=== PATIENT | male | born 1970 | race Caucasian/White ===

== ENCOUNTER 2025-08-06 09:24 | Emergency (ER) | payer BC, SELFPAY ==
[2025-08-06 09:26] VITALS: BP 138/87; PULSE 85; RESP 18; TEMP 37; O2SAT 97
--- NOTE | 2025-08-06 09:55 | ED.GENADULT ---
HPI - General Adult General Chief complaint: Post Op Complication Stated complaint: post op complication, bleeding Time Seen by Provider: 08/06/25 09:29 History of Present Illness HPI narrative: Patient is a 54 year white male who is type 2 diabetic and on Xarelto for TIA, presents after he had umbilical hernia surgery about 10 days ago in [facility], they are driving on the way to [place]. He scrubbed is abdomen little more aggressively today and it caused some bleeding around the surgical site. They stop for evaluation. He is taking Xarelto preventatively for TIA as mention. Patient denies pain in his abdomen he is recovering from his surgery. He Related Data Home Medications ?Medication ?Instructions ?Recorded ?Confirmed atorvastatin 40 mg tablet 40 mg PO DAILY 08/06/25 08/06/25 hydrochlorothiazide 25 mg tablet 25 mg PO DAILY 08/06/25 08/06/25 lisinopril 40 mg tablet 40 mg PO DAILY 08/06/25 08/06/25 rivaroxaban 20 mg tablet (Xarelto) 25 mg PO DAILY 08/06/25 08/06/25 Allergies Allergy/AdvReac Type Severity Reaction Status Date / Time contrast Allergy Severe Uncoded 08/06/25 09:33 Review of Systems Status of ROS: Reports: 6 or more systems reviewed and unremarkable except as noted in History and below Exam Narrative: Exam Narrative: Objective: Vital signs are within normal limits Alert or x3 Abdomen is shows some bruising around the umbilicus where his umbilical hernia repaired, the patient did had this open to air and the family had Steri-Strips at this morning, these were removed The wound is intact there is no obvious bleeding along the surgical site line I was observing it for period of time and there appeared to be no oozing or leaking, no evidence evidence of cellulitis. There is some firmness around the umbilicus below consistent with mild hematoma, this seems like it was more postoperative. Const: Vital Signs, click to edit/add: Vital Signs - 24 hr 08/06/25 09:26 Temperature 98.6 F Pulse Rate [Right Pulse Oximeter] 85 Respiratory Rate 18 Blood Pressure [Ri ght Upper Arm] 138/87 Pulse Oximetry 97 Oxygen Delivery Me thod Room Air Course Vital Signs Vital signs: Initial Vital Signs Temperature 98.6 F 08/06/25 09:26 Temperature Source Temporal Artery Scan 08/06/25 09:26 Pulse Rate 85 08/06/25 09:26 Pulse Rhythm Regular 08/06/25 09:26 Pulse Strength 3+ Normal 08/06/25 09:26 Respiratory Rate 18 08/06/25 09:26 Blood Pressure 138/87 08/06/25 09:26 Blood Pressure Mean 104 08/06/25 09:26 Blood Pressure Position Sitting 08/06/25 09:26 Pulse Oximetry 97 08/06/25 09:26 Oxygen Delivery Method Room Air 08/06/25 09:26 Vital Signs Temperature 98.6 F 08/06/25 09:26 Pulse Rate 85 08/06/25 09:26 Respiratory Rate 18 08/06/25 09:26 Blood Pressure 138/87 08/06/25 09:26 Pulse Oximetry 97 08/06/25 09:26 Oxygen Delivery Method Room Air 08/06/25 09:26 Temperature 98.6 F 08/06/25 09:26 Pulse Rate 85 08/06/25 09:26 Respiratory Rate 18 08/06/25 09:26 Blood Pressure 138/87 08/06/25 09:26 Pulse Oximetry 97 08/06/25 09:26 Oxygen Delivery Method Room Air 08/06/25 09:26 Medical Decision Making MDM Narrative Medical decision making narrative: 54-year-old male with type 2 diabetes an on Xarelto for TIA presents with bleeding along his surgical site. At this time I think will simply clean it covered with Telfa and ABD and they can proceed on their journey to [place]. Recommend he not drive. Recommend his drive. Recommend he hold his Xarelto for a day given it is just a preventative dose. Keep the wound covered if there is any leaking today and then may leave it open to air as soon as it is not bleeding. Although now peers there is no active bleeding or obvious bleeding. Discharge Plan Discharge Clinical Impression: Encounter for post surgical wound check Patient Disposition: Home w/ Parent or Adult Condition: Stable Additional Instructions: Keep covered today, may take off the covering as soon as it is not bleeding at all, would recommend holding your Xarelto dose today and then restarting tomorrow. Light activity. Consult with your surgeon as needed. Activity Level: Light activity Discharge Diet: Diabetic Prescriptions: No Action lisinopril 40 mg tablet 40 mg PO DAILY atorvastatin 40 mg tablet 40 mg PO DAILY hydrochlorothiazide 25 mg tablet 25 mg PO DAILY Xarelto 20 mg tablet 25 mg PO DAILY Rx Instructions: must administer with evening meal Stand Alone Forms: [employer] Info Instructions
--- OUTSIDE RECORDS SUMMARY | 2025-08-06 10:11 | XMS_ITS | Encounter Summary ---
Author Organization [facility] Address [address] [place] [id number] Phone Care Team Providers Care Legal Practice Manager Name Role Phone Lilian Torres APRN, CLARISSA Primary Care Prov ider Reason for Visit * Reason Onset Date Comments Study/research 06/22/2025 Precidentd Study - 2 year visit Encounter Details Date Type Department Care Team (Late st Contact Info) Description 06/22/2025 Telephone [facility] [address] [place] [address] Shannon Beavers Study/research (Precidentd Study - 2 year visit) Social History Tobacco Use Types Packs/Day Years Used Date Smoking Tobacco: Every Day Cigarettes 1 15 Cigars Smokeless Tobacco: Former Chew Quit: 05/27/2025 Alcohol Use Standard Drinks/Week Comments Yes 0 (1 standard drink = 0.6 oz pure alcohol) 12 beers per week, recently 24 pack a day [facility] Utilities Answer Date Recorded In the past 12 months has [employer], gas, oil, or water [employer] threatened to shut off services in your home? No 04/10/2025 Overall Financial Resource Strain (CARDIA) Answe r Date Recorded How hard is it for you to pa y for the very basics like food, housing, medical care, and heating? Not hard at all 11/19/2021 PHQ-2 Answer Date Recorded PHQ-2 Total 0 11/19/2021 Hunger Vital Sign Answer Date Recorded Within the past 12 months, y ou worried that your food would run out before you got the money to buy more. Never true 04/10/20 25 Within the past 12 months, t he food you bought just didn't last and you didn't have money to get more. Never true 04/10/2025 PRAPARE - Transportation Answer Date Re corded In the past 12 months, has l ack of transportation kept you from medical appointments or from getting medications? No 03/16 In the past 12 months, has l ack of transportation kept you from meetings, work, or from getting things needed for daily living? No 04/10/2025 Housing Stability Vital Sign Answer Nemesio e Recorded In the last 12 months, was t here a time when you were not able to pay the mortgage or rent on time? No 04/10/2025 In the past 12 months, how m any times have you moved where you were living? 0 04/10/2025 At any time in the past 12 m [facility], were you homeless or living in a long term (including now)? No 04/10/2025 EH IP Custom IPV Answer Date Recorded Do you feel UNSAFE in any of your personal relationships with your family members or any other acquaintances? 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 Gender Identity Male 12/15/2022 1:25 PM CDT Sexual Orientation Not on file documented as of this encounter Functional Status * Patient's Vision Adequate to Safely Complete Daily Activities Answer Date of Assessment Author Yes 04/10/2025 1:35 AM SANKETT Joslyn Estes RN * Patient's Memory Adequate to Safely Complete Daily Activities Answer Date of Assessment Author Yes 04/10/2025 1:35 AM Joslyn Reinoso RN documented as of this encounter Mental Status * Patient's Judgment Adequate to Safely Complete Daily Activities Answer Entry Date Author Yes 04/10/2025 1:35 AM Joslyn Reinoso RN documented in this encounter Ordered Prescriptions Prescription Sig Dispense Quantity Refills Last Filled Start Date End Date semaglutide (Ozempic, 1 MG/DOSE,) 4 mg/3 mL solution pen-injectorIndica tions:Type 2 diabetes mellitus without complication, without long-term current use of insulin (HCC),Obesity, morbid, BMI 40.0-49.9 (HCC),History of ischemic stroke,Clinical trial participant Inject 1 mg under the skin one time a week. Start on week 11. 3 mL 1 09/01/2025 5 semaglutide, 0.25 or 0.5 mg/dose, (Ozempic, 0.25 or 0.5 MG/DOSE,) 2 mg/3 mL solution pen-injectorIndica tions:Type 2 diabetes mellitus without complication, without long-term current use of insulin (HCC),Obesity, morbid, BMI 40.0-49.9 (HCC),History of ischemic stroke,Clinical trial participant Inject 0.25 mg under the skin once weekly for 4 doses, THEN increase to 0.5 mg once weekly for 6 doses. 3 mL 1 06/24/2025 1:32 PM CDT 06/23/2025 5 documented in this encounter Miscellaneous Notes * Addendum Note - Shannon Beavers - 06/23/2025 1:51 PM CDTAddended by: SHANNON BEAVERS on: 06/23/2025 01:51 PM Modules accepted: Orders * Telephone Encounter - Shannon Beavers - 06/23/2025 1:42 PM CDT Pharmacy Estimate is as follows: The current plan we have [facility], nothing new came up. There is no copay for 84 days of Trulicity or Ozempic under that plan. GLP-1 Receptors: Dulaglutide injection (brand name: Trulicity) 0.75mg/0.5mL SC qweek x 4 weeks, then increase to 1.5mg weekly. 3 months supply. Semaglutide injection (brand name: Ozempic) start at 0.25mg SC weekly x 4 weeks then increase to 0.5mg SC weekly x 4 weeks. 3 months supply. Spoke with the patient about his estimate and he wants to restart this medication. He requests Ozempic RX be sent to [facility] pharmacy. Dr Perez has OK'd restarting GLP-1 as the patient was originally randomized to this group. Cosigned by Rosa Perez MD at 06/23/2025 4:53 PM CDT Associated attestation - Rosa Perez MD - 06/23/2025 4:53 PM CDT Attestation: I agree with the findings and the plan of care as documented. Rosa Perez MD 06/23/2025 4:52 PM * Telephone Encounter - Shannon Beavers - 06/22/2025 11:07 AM CDT Spoke with the patient on Precidentd study regarding year 2 visit check in. The patient was randomized to a GLP-1 but has not been taking it due to cost. I let him know I'd be happy to do a pharmacy estimate and look into the cost, as he is on a new insurance and it may be more affordable. documented in this encounter Plan of Treatment Not on file documented as of this encounter Visit Diagnoses Diagnosis Type 2 diabetes mellitus without complication, without long-term current use of insulin (HCC)- Primary Obesity, morbid, BMI 40.0-49.9 (HCC) History of ischemic stroke Precidentd Study participant Reserved for inherently not codable concepts WITHOUT codable children documented in this encounter Care Teams Legal Practice Manager Relationship Specialty Start Date End Date Lilian Trores, TRIMMER TAILER, COLLAR SETTER [address] [facility] [address] [place] [address] PCP - General Nurse Practitioner 02/08/25 documented as of this encounter
--- OUTSIDE RECORDS SUMMARY | 2025-08-06 10:11 | XMS_ITS | Encounter Summary ---
Author Organization [facility] Address [address] [address] Phone Care Team Providers Care Spinner Cap Frame Name Role Phone Lilian Torres APRN, CNP Primary Care Prov ider Reason for Visit * Reason Comments Refill Request Encounter Details Date Type Department Care Team (Late st Contact Info) Description 07/13/2025 Refill [facility] [address] [place], [place] [address] Lisset Bejarano APRN, CONCRETE BATCHING PLANT OPERATOR [address] [place], [place] [address] Refill Request Social History Tobacco Use Types Packs/Day Years Used Date Smoking Tobacco: Every Day Cigarettes 1 15 Cigars Smokeless Tobacco: Former Chew Quit: 05/27/2025 Alcohol Use Standard Drinks/Week Comments Yes 0 (1 standard drink = 0.6 oz pure alcohol) 12 beers per week, recently 24 pack a day [facility] Utilities Answer Date Recorded In the past 12 months has [employer], gas, oil, or water [employer] threatened to shut off services in your [...] money to buy more. Never true 04/10/20 Within the past 12 months, t he [...] any time in the past 12 m [facility], were you homeless or living in a detention (including now)? No 04/10/2025 EH IP Custom IPV Answer Date Recorded Do you feel UNSAFE in any of your personal relationships with your family members or any other acquaintances? 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 Future refills to PCP 30 Tablet 07/26/2025 3:00 PM LOOP MACHINE OPERATOR 07/13/2025 documented in this encounter Miscellaneous Notes * Telephone Encounter - Li Woo RN - 07/13/2025 3:16 PM CDT Images from the original note were not included. Requested Renewals rivaroxaban (Xarelto) 20 MG tablet Sig: Take 1 Tablet by mouth one time a day. Disp: 30 Tablet Refills: 1 Start: 07/13/2025 Class: Normal Non-formulary Last ordered: 1 month ago (06/06/2025) by Lisset Bejarano APRN, CNP Last dispensed: 06/24/2025 Rx #: [id number] To be filled at: [facility] documented in this encounter Plan of Treatment Not on file documented as of this encounter Visit Diagnoses Not on filedocumented in this encounter Discontinued Medications Medication Sig Discontinue Reason Start Date End Da te rivaroxaban (Xarelto) 20 MG tablet Take 1 Tablet by mouth one time a day. Reorder 06/06/2025 07/13/2025 documented as of this encounter Care Teams Spinner Cap Frame Relationship Specialty Start Date End Date Lilian Torres APRN, CLARISSA [address] [address] PCP - General Nurse Practitioner 02/08/25 documented as of this encounter
--- OUTSIDE RECORDS SUMMARY | 2025-08-06 10:11 | XMS_ITS | Clinical Summary ---
Author Organization [facility] Address [address] [place] [address] [place] [address] Phone Care Team Providers Care Regional Sales Coordinator Name Role Phone Lilian Torres APRN, CLARISSA Primary Care Prov ider Allergies Active Allergy Reactions Criticality Noted Date Comments Gadolinium Rhinitis Low 04/09/2025 Medications * This document contains information received from the source organization and may not represent a complete record from that organization. Blood Glucose Monitoring Suppl (ONETOUCH VERIO IQ SYSTEM) w/Device Kit 1 Each by Does not apply route two times a day. 1 Kit 8 Active aspirin (Aspirin Low Dose) 81 MG chewable tabletIndicati ons:Cardiac protection Chew and swallow 1 Tablet one time a day. Take with food. Indications: Cardiac protection 90 Tablet 3 04/28/2023 1:09 PM CDT 3 Active melatonin 3 MG tabletIndicati ons:Insomnia Take 1 Tablet by mouth at bedtime as needed for Sleep. Indications: Trouble Sleeping 90 Tablet 3 3 Active glucose blood test (OneTouch Verio)Indicati ons:Type 2 diabetes mellitus without complication, without long-term current use of insulin (HCC) 1 Strip two times a day. 200 Strip 3 3 Active meclizine (Antivert) 25 MG tablet Take 1 Tablet by mouth three times a day as needed for Dizziness or Nausea. 30 Tablet 3 Active hydroCHLOROthi azide (Hydrodiuril) 25 MG tablet Take 1 Tablet by mouth one time a day. 90 Tablet 3 07/26/2025 3:00 PM HUMANITIES DIVISION CHAIR Active acetaminophen (TYLENOL) 325 MG tablet Take 2 Tablets by mouth every four hours as needed for Pain. Limit acetaminophen to 4000 mg per day from all sources. Active nicotine polacrilex (Nicorette) 2 MG gum Take 1 Stick by mouth every hour as needed for smoking cessation 2 mg= 1 piece. Chew and park between cheek and gums intermittently every 1-5 minutes for 30 minutes. Do not eat or during 15 minutes before or while chewing nicotine gum. Maximum does: 24 pieces per day 110 Stick 2 04/16/2025 11:33 AM CDT 5 Active Blood Glucose Monitoring Suppl (Blood Glucose Monitor System) w/Device Kit use as directed to check blood sugar once daily 1 Each 06/06/2025 4:03 PM CDT 5 Active Glucose Blood (BLOOD GLUCOSE TEST STRIPS) Strip 1 Each one time a day. 100 Each 3 06/06/2025 4:03 PM CDT 5 Active lancets, Accu-Chek Softclix, (Accu-Chek Softclix) 1 Each one time a day to check blood sugar 100 Each 3 06/06/2025 4:03 PM CDT 5 Active lisinopril (Prinivil, Zestril) 40 MG tablet Take 1 Tablet by mouth one time a day. 90 Tablet 4 07/27/2025 2:27 PM HUMANITIES DIVISION CHAIR 5 Active rivaroxaban (Xarelto) 20 MG tablet Take 1 Tablet by mouth one time a day. Future refills to PCP 30 Tablet 07/26/2025 3:00 PM HUMANITIES DIVISION CHAIR Active HYDROcodone-ac etaminophen ([place]) 5-325 MG oral tablet Take 1-2 tablets by mouth every 6 hours as needed for moderate pain or severe pain for up to 3 days. 15 Tablet 07/27/2025 2:27 PM HUMANITIES DIVISION CHAIR Active atorvaSTATin (Lipitor) 40 MG tablet Take 1 tablet (40 mg) by mouth 1 time per day 90 Tablet 3 08/05/2025 5:03 PM HUMANITIES DIVISION CHAIR 5 Active semaglutide, 0.25 or 0.5 mg/dose, (Ozempic, 0.25 or 0.5 MG/DOSE,) 2 mg/3 mL solution pen-injector Inject 0.5 mg under the skin one time a week for 4 weeks.Then increase to 1 mg weekly (Step 3). 3 mL 08/05/2025 5:03 PM HUMANITIES DIVISION CHAIR Active semaglutide (Ozempic, 1 MG/DOSE,) 4 mg/3 mL solution pen-injector Inject 1 mg under the skin one time a week for 4 weeks. Then increase to 2 mg weekly (Step 4) 3 mL Active semaglutide (Ozempic, 2 MG/DOSE,) 8 mg/3 mL solution pen-injector Inject 2 mg under the skin one time a week. 9 mL 3 5 Active Active Problems Problem Noted Date Diagnosed Date History of ischemic stroke 04/10/2025 TIA (transient ischemic attack) 04/09/2025 Assessment & Plan (04/10/2025 12:24 AM CDT): -Admit to 12 neuro with stroke orderset per protocol -Continue ASA, xarelto -Defer repeating ECHO -Serial neurochecks -Continue HEALTH PROMOTION OFFICER lisnopril and HCTZ -PRN labetalol for SBP >180 or DBP >100 -Cont atorvastatin (excellent LDL 78 last admit) -Stroke neuro consult in AM -Consider renal artery duplex if ongoing labile HTN (not available on weekends, could be done as outpt) Elvisd Study participant 06/24/2023 Overview (06/24/2023): Bottle Line Worker: Dr. Rosa Perez Study Description: ROBI will compare three ways to treat diabetes. The study uses two groups of new, commonly prescribed diabetes medications - SGLT2 inhibitors, such as empagliflozin (Jardiance), dapagliflozin (Farxiga), and canagliflozin (Invokana), and GLP1 receptor agonists, such as semaglutide (Ozempic, Rybelsus), dulaglutide (Trulicity), and liraglutide (Victoza). Participants will be randomly assigned to take one of these medications or a combination of both. These medications have proven benefits for people with type 2 diabetes. We hope to learn which diabetes medications work best to reduce the risk of heart and kidney disease in people with type 2 diabetes. Consenting Note: 06/19/2023 Patient met inclusion/exclusion criteria and was invited to participate in the research study. The patient provided consent and was randomized. Date of randomization: 06/24/2023 Informed consent was obtained prior to any study-specific activities. Thank you, Precident[facility] Study Team Diabetes mellitus type 2 without retinopathy 02/2023 Generalized anxiety disorder 12/16/2022 Alcohol abuse, in remission 12/15/2022 Major depressive disorder, r ecurrent episode, severe with anxious distress 12/15/2022 Type 2 diabetes mellitus wit hout complication, without long-term current use of insulin 10/27/2018 Assessment & Plan (04/10/2025 12:24 AM CDT): -A1C 7.6 last admis -Hold HE[employer] PROMOTION OFFICER semaglutide -QID accuchecks/low SSI Uncontrolled hypertension 06/26/2014 Assessment & Plan (04/10/2025 12:24 AM CDT): -Admit to 12 neuro with stroke orderset per protocol -Continue ASA, xarelto -Defer repeating ECHO -Serial neurochecks -Continue HEALTH PROMOTION OFFICER lisnopril and HCTZ -PRN labetalol for SBP >180 or DBP >100 -Cont atorvastatin (excellent LDL 78 last admit) -Stroke neuro consult in AM -Consider renal artery duplex if ongoing labile HTN (not available on weekends, could be done as outpt) Obesity, morbid, BMI 40.0-49.9 06/26/2014 Dyslipidemia 06/26/2014 Resolved Problems Problem Noted Date Diagnosed Date Resolved Date TIA (transient ischemic attack) 02/06/2025 02/08/2025 Major depression 12/16/2022 02/06/2025 Alcohol withdrawal, uncomplicated 12/15/2022 02/06/2025 Hypertensive urgency 10/27/2018 025 Other secondary hypertension 08/25/2015 02/06/2025 Aphasia 07/19/2014 08/19/2014 Cognitive communication deficit 07/19/2014 08/19/2014 Hypertensive encephalopathy 06/26/2014 07/04/2014 Encounters Date Type Department Care Team Description 07/13/2025 Refill [facility] [address] [place] [address] Lisset Bejarano, JUAN M, LOG MANAGER Refill Request 06/22/2025 Telephone [facility] [address] [place] [id number] Shannon Beavers Study/research (Precident[facility] Study - 2 year visit) 06/05/2025 Refill [facility] [address] [place] [address] Janelle Cabrera, VOICER, LOG MANAGER Refill Request 06/01/2025 8:30 AM CDT [facility] [address] [place] [address] Ana Guzmna, RD,LD Type 2 diabetes mellitus without complication, without long-term current use of insulin (HCC) (Primary Dx) 06/01/2025 Travel 05/24/2025 9:00 AM CDT [facility] [address] [place] [address] Lisset Bejarano, VOICER, LOG MANAGER History of ischemic stroke (Primary Dx) from Last 3 Months Immunizations Immunization Administration Dates Next Due COVID-19 MRNA Vaccine (Pfize r PASCUAL-SUCR) [place] 12+ Yrs Seasonal 06/19/2023 COVID-19 mRNA Vaccine (Pfize r-Purple 12+ Yrs) 01/20/2021,12/30/2020 Influenza Quad Preservative Free 023,09/05/2020,11/12/2019,2018 Pneumovax 23 11/12/2019 TD >7yrs With Preservative 01/16/2005,03/27/2001 ,03/11/1991 Tdap (7 years and older) 03/13/2018 Zoster Shingrix 2 Dose (Shingles) 03/02/2021 Surgical History Surgery Date Site/Laterality Comments TONSILLECTOMY Medical History Medical History Date Comments Lipoma of unspecified site 04/22/2001 CVA (cerebral vascular accident) (HCC) 4 Pt denies any persistent deficits HTN (hypertension) Type 2 diabetes mellitus (HCC) 10/27/2018 Alcohol use disorder, severe , dependence (HCC) 12/15/2022 Family History Medical History Relation Comments Hypertension Brother Stroke Mother Ophthalmic Disease Negative Family Hx Relation Status Comments Brother Alive HTN Mother Alive HTN, stroke in 5 0's Social History Tobacco Use Types Packs/Day Years Used Date Smoking Tobacco: Every Day Cigarettes 1 15 Cigars Smokeless Tobacco: Former Chew Quit: 05/27/2025 Tobacco Cessation:Ready to Q uit: Not Asked; Counseling Given: Not Answered Alcohol Use Standard Drinks/Week Comments Yes 0 (1 standard drink = 0.6 oz pure alcohol) 12 beers per week, recently 24 pack a day [facility] Utilities Answer Date Recorded In the past 12 months has th e electric, gas, oil, or water company threatened to shut off services in your [...] any time in the past 12 m [facility], were you homeless or living in a usp (including now)? No 04/10/2025 IP Custom IPV Answer Date Recorded Do you feel UNSAFE in any of your personal relationships with your family members or any other acquaintances? No 2024 Sex and Gender Information Value Date Recorded Sex Assigned at Not on file Legal Sex Male 9:37 PM HUMANITIES DIVISION CHAIR Gender Identity Male 12/15/2022 1:25 PM CDT Sexual Orientation Not on file Last Filed Vital Signs Vital Sign Reading Time Taken Comments Blood Pressure 130/80 04/10/2025 1:54 PM CDT Pulse 59 04/10/2025 1:54 PM CDT Temperature 36.7 C (98.1 F) 04/10/2025 7:58 AM CDT Respiratory Rate 16 04/10/2025 1:54 PM CDT Oxygen Saturation 97% 04/10/2025 1:54 PM CDT Inhaled Oxygen Concentration - - Weight 115.7 kg (255 lb) 04/10/2025 12:46 AM CDT Height 177.8 cm (5' 10) 04/10/2025 12:46 AM CDT Body Mass Index 36.59 04/10/2025 12:46 AM CDT Plan of Treatment Health Maintenance Due Date Last Done Comments CT Colonography 1970 Cologuard 1970 Colonoscopy 1970 Sigmoidoscopy 1970 Hepatitis B Vaccine (Standing Order) (1 of 3 - 19+ 3-dose series) 1989 Pneumococcal Vaccine: 50+ yrs (Standing Order) (2 of 2 - PCV) 11/12/2020 11/12/2019 Shingrix (Zoster recombinant) vaccine (Standing Order) (2 of 2) 04/27/2021 03/02/2021 Colorectal Cancer Screening 09/07/2021 FIT/FOBT 09/07/2021 09/07/2020 DIABETES MICROALBUMIN Q1 YEAR (Standing Order) 02/10/2023 03/12/2022, 03/02/2021, 11/12/2019, Additional history exists DIABETIC EYE EXAM 02/18/2024 03/20/2023 COVID-19 Single Dose 05/16/2025 06/19/2023 Influenza Vaccine Seasonal (Standing Order) (#1) 2025 06/19/2023, 09/05/2020, 11/12/2019, Additional history exists DIABETES HGB A1C Q6 MONTHS (Standing Order) 10/11/2025 04/10/2025, 02/07/2025, 04/21/2023, Additional history exists DIABETES SERUM CREATININE Q1 YEAR (Standing Order) 04/10/2026 04/10/2025, 02/07/2025, 02/06/2025, Additional history exists TETANUS (Standing Order) 03/13/2028 018, 01/16/2005, 03/27/2001, Additional history exists DIABETES LIPID PROFILE Q5 YEARS (Standing Order) 04/10/2030 04/10/2025, 02/07/2025, 03/12/2022, Additional history exists PERTUSSIS (Standing Order) Completed 03/13/2018 HPV Vaccine (Standing Order) Aged Out No longer eligible based on patient's age to complete this topic Procedures Procedure Name Priority Date/Time Associated Diagnosis Comments DSMT,RD ONLY,INDIVIDUAL Routine 06/01/2025 9:14 AM CDT Type 2 diabetes mellitus without complication, without long-term current use of insulin (HCC) HEMOGLOBIN A1C Routine 04/10/2025 12:53 PM CDT LIPID PROFILE Routine 04/10/2025 12:53 PM CDT COMPREHENSIVE METABOLIC PANEL Routine 04/10/2025 6:31 AM CDT MICROALBUMIN/CREATINI NE RATIO, URINE Routine 03/12/2022 8:48 AM CDT Uncontrolled type 2 diabetes mellitus with hyperglycemia (HCC) FECAL OCCULT BLOOD, IMMUNOASSAY (COLORECTAL SCREENING) Routine 09/07/2020 8:00 AM HUMANITIES DIVISION CHAIR Colon cancer screening from Last 3 Months or Most Recently Relevant to Health Maintenance Results * (ABNORMAL) HEMOGLOBIN A1C (04/10/2025 12:53 PM CDT) Hemoglobin A1c 6.7(H) 4.0 - 5.6 % 04/10/2025 1:[address] [facility] Estimated Average Glucose 146 mg/dL 04/10/2025 1:[address] [facility] Blood BLOOD SPECIMEN / Unknown Venipuncture / Unknown 04/10/2025 12:53 PM CDT 04/10/2025 12:[address] [facility] - 04/10/2025 1:09 PM CDT HGA1C Reference Ranges >= 6.5 Diabetes* 5.7-6.4 Impaired glucose tolerance <5.7 Normal *In the absence of unequivocal hyperglycemia, results should be confirmed by repeat testing for the diagnosis of diabetes. [employer] 2018 us Kristine Amaya PA-C EC CHEMISTRY ORDERABLES ABN Final Result [facility] [address] [place] [address], [facility] * (ABNORMAL) LIPID PANEL (04/10/2025 12:53 PM CDT) [facility] Cholesterol 157 0 - 200 mg/dL 04/10/2025 1:[address] [facility] HDL Cholesterol 36(L) >40 mg/dL 1:[address] [facility] Non-HDL Cholesterol 121 0 - 130 mg/dL 04/10/2025 1:[address] [facility] Triglycerides 165 <175 mg/dL 04/10/2025 1:[address] [facility] LDL Cholesterol, Calculated 88 0 - 100 mg/dL 04/10/2025 1:[address] [facility] Comment:LDL Cholesterol calc ulated using the Friedewald equation. Blood BLOOD SPECIMEN / Unknown Venipuncture / Unknown 04/10/2025 12:53 PM CDT 04/10/2025 12:[address] [facility] - 04/10/2025 1:33 PM CDT Total Cholesterol Reference Ranges Optimal: <200 mg/dL Borderline High: 200-239 mg/dL High: > or = 240 mg/dL Triglycerides Reference Ranges Optimal: 10-200 mg/dL Borderline High: 150-200 mg/dL High: 201-499 mg/dL Very High: > or = 500 mg/dL LDL Cholesterol Reference Ranges Optimal: <100 mg/dL Near Optimal: 100-129 mg/dL Borderline High: 130-159 mg/dL High: 160-189 mg/dL Very High: > or = 190 mg/dL us Kristine Amaya PA-C EC CHEMISTRY ORDERABLES ABN Final Result [facility] [address] [place] [address], [facility] * (ABNORMAL) COMPREHENSIVE METABOLIC PANEL (04/10/2025 6:31 AM CDT) Sodium 140 134 - 143 mEq/L 04/10/2025 7:[address] [facility] Potassium 4.2 3.4 - 5.1 mEq/L 04/10/2025 7:[address] [facility] Chloride 109 99 - 110 mEq/L 04/10/2025 7:[address] [facility] Carbon Dioxide 24 19 - 29 mEq/L 04/10/2025 7:[address] [facility] Anion Gap 7.0 3.0 - 15.0 mEq/L 04/10/2025 7:[address] [facility] Blood Urea Nitrogen 14 5 - 24 mg/dL 04/10/2025 7:13 AM [facility] Creatinine 0.66(L) 0.70 - 1.20 mg/dL 04/10/2025 7:13 AM [facility] Glomerular Filtration Rate 111 >60 mL/min/1. 73 m*2 04/10/2025 7:13 AM [facility] Comment:Risk of cardiovascul ar disease increases when GFR is abnormal; persistently reduced GFR values are a specific indication of CKD. This calculation uses CKD- EPI 2020 equation without adjustment for race; it has not been validated in women. Calcium 9.1 8.4 - 10.5 mg/dL 04/10/2025 7:[address] [facility] Glucose 144(H) 70 - 99 mg/dL 04/10/2025 7:13 AM [facility] Protein, Total 6.4 6.0 - 8.0 g/dL 04/10/2025 7:13 AM [facility] Albumin 3.4(L) 3.5 - 5.0 g/dL 04/10/2025 7:[address] [facility] Alkaline Phosphatase 87 40 - 150 IU/L 04/10/2025 7:[address] [facility] Aspartate Aminotransferase 18 16 - 40 IU/L 04/10/2025 7:[address] [facility] Alanine Aminotransferase 25 10 - 48 IU/L 04/10/2025 7:[address] [facility] Bilirubin, Total 0.8 0.2 - 1.2 mg/dL 04/10/2025 7:[address] [facility] Blood BLOOD SPECIMEN / Unknown Venipuncture / Unknown 04/10/2025 6:31 AM CDT 04/10/2025 6:[address] [facility] - 04/10/2025 7:13 AM CDT Current ADA criteria for Glucose: Normal: 70-99 mg/dL Impaired Fasting Glucose: 100-125 mg/dL Diabetes Mellitus: at or above 126 mg/dL The diagnosis of diabetes must be confirmed on a subsequent day by measuring Fasting Plasma Glucose, 2-hr PG or random plasma glucose (if symptoms are present). Aakash Grossman MD EC CHEMISTRY ORDERABLES Final Result [facility] [address] [address] * MICROALBUMIN/CREATININE RATIO, URINE (03/12/2022 8:48 AM CDT) Urine Microalbumin/Crea tinine Ratio 14 0 - 29 03/12/2022 9:11 AM CDT [facility] Urine Creatinine, Random 50 mg/dL 03/12/2022 9:11 AM CDT [facility] Urine Microalbumin 0.7 mg/dL 03/12/2022 9:11 AM CDT [facility] Urine VOIDED URINE SPECIMEN / Unknown Non-blood collection / Unknown 03/12/2022 8:48 AM CDT 03/12/2022 8:54 AM CDT Lucinda Garcia MD EC URINE ORDERABLES Final R esult [facility] [address] [place] [address] * FECAL OCCULT BLOOD, IMMUNOASSAY (09/07/2020 8:00 AM HUMANITIES DIVISION CHAIR) Fecal Occult Blood, Immunoassay Negative Negative 09/12/2020 10:09 [address] HUMANITIES DIVISION CHAIR [facility] Stool specimen (specimen) FECES / Unknown Non-blood collection / Unknown 09/07/2020 8:00 AM HUMANITIES DIVISION CHAIR 09/11/2020 9:27 PM HUMANITIES DIVISION CHAIR Casey Lucas PA-C EC URINE ORDERABLES Final Re sult [facility] [address] from Last 3 Months or Most Recently Relevant to Health Maintenance Insurance [facility] Advance Directives For more information, please contact: [phone] * Full Code (Latest Code Status on File) Date Activated Date Inactivated Comments 04/09/2025 10:59 PM 04/10/2025 8:03 PM * Full Code Date Activated Date Inactivated Comments 02/07/2025 1:28 AM 02/08/2025 7:40 PM * Full Code Date Activated Date Inactivated Comments 12/15/2022 1:24 PM 12/20/2022 5:20 PM * Full Code Date Activated Date Inactivated Comments 10/27/2018 3:27 AM 10/28/2018 1:19 PM * Full Code Date Activated Date Inactivated Comments 06/26/2014 8:03 PM 06/29/2014 4:14 PM Care Teams Regional Sales Coordinator Relationship Specialty Start Date End Date Lilian Torres APRN, LOG MANAGER [address] [address] PCP - General Nurse Practitioner 02/08/25
== END 2025-08-06 10:11 | disposition home or self-care (01) ==
LOC: ED 10:09
PROVIDERS: Emergency Provider Family Medicine
DX: L76.22 Postprocedural hemorrhage of skin and subcutaneous tissue following other procedure (principal); E11.9 Type 2 diabetes mellitus without complications
CPT/HCPCS: 99283